=== PATIENT | female | born 1950 | race American Indian/Alaskan Native ===

== ENCOUNTER 2019-05-11 08:48 | Emergency (ER) | payer OTHER, MEDICARE ==
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
[2019-05-11 12:40] VITALS: BP 143/59
== END 2019-05-11 12:40 | disposition home or self-care (01) ==
LOC: ED 08:48
DX: S22.070A Wedge compression fracture of T9-T10 vertebra, initial encounter for closed fracture (principal); M54.2 Cervicalgia; V89.2XXA Person injured in unspecified motor-vehicle accident, traffic, initial encounter; Y93.89 Activity, other specified; Y92.488 Other paved roadways as the place of occurrence of the external cause; Y99.8 Other external cause status
CPT/HCPCS: 72040; 72070; 72100; 99283